=== PATIENT | female | born 2000 | race African-American/Black ===

== ENCOUNTER 2024-02-03 20:08 | Emergency (ER) | payer SELFPAY ==
[~2024-02-03] VITALS: Ht 167.6 cm; Wt 63.7 kg
[2024-02-03 20:08] VITALS: BP 132/83; TEMP 97.8; O2SAT 97
[2024-02-03 21:01] LABS: APPEARANCE, URINE CLEAR (CLEAR); BACTERIA, URINE AUTO 1+ (NEGATIVE); BILIRUBIN, URINE AUTO NEGATIVE (NEGATIVE); BLOOD, URINE BLOOD NEGATIVE (NEGATIVE); COLOR, URINE YELLOW (YELLOW); GLUCOSE, URINE (UA) AUTO NEGATIVE (NEGATIVE); KETONE, URINE AUTO NEGATIVE (NEGATIVE); LEUKOCYTE ESTERASE, URINE AUTO NEGATIVE (NEGATIVE); NITRITE, URINE AUTO NEGATIVE (NEGATIVE); PROTEIN, URINE AUTO NEGATIVE (NEGATIVE); RBC, URINE AUTO 0 /HPF (0-3); SPECIFIC GRAVITY URINE AUTO 1.014 (1.002-1.035); SQUAMOUS EPITHELIAL CELL UR AU 4 /HPF (0-6); UROBILINOGEN, URINE AUTO 0.2 mg/dL (0.0-2.0); WBC, URINE AUTO 1 /HPF (0-3)
[2024-02-03 21:31] LABS: HEPATITIS B SURFACE ANTIBODY POSITIVE (POSITIVE)
[2024-02-03 21:43] LABS: HEPATITIS B SURFACE ANTIGEN NEGATIVE (NEGATIVE)
[2024-02-03 22:11] LABS: HEPATITIS C VIRUS ABY INDEX < 0.02 INDEX (<0.8)
[2024-02-03 22:22] LABS: Trichomonas vaginalis (AMP) NOT DETECTED (NEGATIVE)
[2024-02-03 22:46] LABS: GC DNA AMPLIFICATION NEGATIVE (NEGATIVE)
[2024-02-03 23:06] LABS: HIV 1&2 SCREEN NEGATIVE (NEGATIVE)
== END 2024-02-03 23:29 | disposition left against medical advice (07) ==
LOC: M ED 20:08
DX: Z53.21 Procedure and treatment not carried out due to patient leaving prior to being seen by health care provider (principal)

== ENCOUNTER 2024-02-03 23:44 | Emergency (ER) | payer OTHER, SELFPAY ==
[~2024-02-03] VITALS: Ht 167.6 cm; Wt 61.4 kg
[2024-02-04 01:13] VITALS: BP 133/78; TEMP 98; O2SAT 97
== END 2024-02-04 01:14 | disposition home or self-care (01) ==
LOC: M ED 23:44
DX: N94.10 Unspecified dyspareunia (principal); Z11.3 Encounter for screening for infections with a predominantly sexual mode of transmission